=== PATIENT | female | born 1995 | race American Indian/Alaskan Native ===

== ENCOUNTER 2018-07-25 13:56 | Emergency (ER) | payer OTHER, BC ==
[2018-07-25 14:12] VITALS: RESP 18; TEMP 99.2; O2SAT 100
[2018-07-25] MEDS ORDERED: Lidocaine 5% Patch TD STA (14:26)
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
[2018-07-25] MEDS ORDERED: Lidocaine 5% Patch TD ONE (14:43)
[2018-07-25 15:54] VITALS: BP 122/82; PULSE 90
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
== END 2018-07-25 15:54 | disposition home or self-care (01) ==
LOC: C.ER 13:56
DX: S23.3XXA Sprain of ligaments of thoracic spine, initial encounter (principal); V49.9XXA Car occupant (driver) (passenger) injured in unspecified traffic accident, initial encounter